=== PATIENT | male | born 1960 | race Caucasian/White ===

== ENCOUNTER 2023-03-19 18:10 | Emergency (ER) | payer BC ==
[2023-03-19] MEDS ORDERED: Lidocaine 1% (PF) 30 ML VIAL ONE (18:20)
[2023-03-19] MEDS ORDERED: Boostrix 0.5 ML (Tdap) VIAL (>/=7 yrs of age) ONE (18:20)
[2023-03-19] MEDS ORDERED: Bacitracin 1 PK ONE (18:43)
== END 2023-03-19 18:53 | disposition home or self-care (01) ==
LOC: NAV ERS 18:10
DX: S61.412A Laceration without foreign body of left hand, initial encounter (principal); Z23 Encounter for immunization; W26.9XXA Contact with unspecified sharp object(s), initial encounter; Y93.H2 Activity, gardening and landscaping
CPT/HCPCS: 12002; 90471; 90715; J2001

== ENCOUNTER 2024-10-18 21:30 | Emergency (ER) | payer BC, MEDICARE ==
[2024-10-18] MEDS ORDERED: Orphenadrine Citrate 60 MG/2 ML VIAL ONE (21:41)
[2024-10-18] MEDS ORDERED: HYDROcodone/Acetaminophen 5/325 mg Tablet ONE (22:31)
== END 2024-10-18 22:25 | disposition home or self-care (01) ==
LOC: NAV ERS 21:30
DX: M70.32 Other bursitis of elbow, left elbow (principal); Z55.6 Problems related to health literacy
CPT/HCPCS: 96372; 99283; J2360